=== PATIENT | male | born 1975 | race Caucasian/White ===

== ENCOUNTER 2017-05-12 22:44 | Emergency (ER) | payer MEDICAID ==
[~2017-05-12] VITALS: Ht 167.6 cm; Wt 100.0 kg
[~2017-05-12 22:44] MED LIST: ANTI-FUNGAL12 TOP; BACTRIM DS1 TAB PO; DOXYCYCL HYC100 MG PO; FLEXERIL PO; HYDROXYZ HCL25 MG PO; KURIC2 % EX; LISINOPRIL10 MG PO; LOPRESSOR25 M1 PO; LOPRESSOR50 M1 PO; NO HOME MEDS; SOLU-MEDROL125 MG IM; TRIAMCINOLON0.11 EX; ULTRAM50 M1 PO; ULTRAM50 MG PO; VALTREX1 GM PO
[2017-05-12] MEDS ORDERED: GENTAMICIN15 ML/BTL OS (23:17)
[2017-05-12 23:21] VITALS: BP 147/100
== END 2017-05-12 23:25 | disposition home or self-care (01) | DRG 115 ==
LOC: ED 22:44
PROC: 08C9XZZ Extirpation of Matter from Left Cornea, External Approach (ICD-10-PCS; principal; 2017-05-12)
DX: T15.02XA Foreign body in cornea, left eye, initial encounter (principal); F17.210 Nicotine dependence, cigarettes, uncomplicated; I10 Essential (primary) hypertension; X58.XXXA Exposure to other specified factors, initial encounter

== ENCOUNTER 2017-06-22 21:32 | Observation (INO) | payer MEDICAID ==
[~2017-06-22] VITALS: Ht 167.6 cm; Wt 87.0 kg
[~2017-06-22 21:32] MED LIST changes: +GENTAMICIN15 ML/BTL OS
--- NOTE | 2017-06-22 21:32 | NUR ---
Pt arrived via EMS. C/O chest pain. Recieved ASA 324 mg p.o., NTG 1 sublingual. states that he has been out of his heart meds for several months.
--- NOTE | 2017-06-22 21:45 | NUR ---
Pt does have cardiac history. MD x 4 with stent placement in 2016. Pt states that chest pain was left sided in nature with radiation to back. Denies nausea or vomiting.
--- NOTE | 2017-06-22 22:00 | NUR ---
Pt states that he is starting to feel better. Skin W/P/D, Sinus Rhythm without ectopy,
[2017-06-22 22:18] LABS: HEMATOCRIT 42.9 % (39.0-50.0); HEMOGLOBIN 14.7 g/dl (14.0-18.0); IMMATURE GRANULOCYTES 0.4 % (0.0-1.0); MEAN CELL VOLUME 85.5 fL CALC (80.0-100.0); MEAN CORPUSCULAR HGB 29.3 pG CALC (26.0-32.0); MEAN CORPUSCULAR HGB CONC 34.3 g/L CALC (32.0-36.0); NEUT# 6.94 thou/uL (1.82-7.42); RED BLOOD COUNT 5.02 mill/uL (4.70-6.10); RED CELL DISTRI WIDTH 12.7 % (11.5-15.5)
[2017-06-22 22:26] LABS: ALBUMIN 4.6 g/dL (3.2-5.0); ALKALINE PHOSPHATASE 66 u/l (38-126); ANION GAP 18 (6-22 (CALC)); BILIRUBIN, TOTAL 0.3 mg/dL (0.0-1.4); BUN 15 mg/dL (9-20); BUN/CREATININE RATIO 11 (12-20 (CALC)); CARBON DIOXIDE 24 mmol/l (22-30); CHLORIDE 106 mmol/l (95-108); CREATININE 1.4 mg/dL (0.7-1.3); GFR 55 ML/MIN (>=60 (CALC)); GFR FOR AFR.AMER. > 60 ML/MIN (>=60 (CALC)); POTASSIUM 3.6 mmol/l (3.5-5.1); SGOT/AST 38 u/l (17-59); SGPT/ALT 31 u/l (21-72); SODIUM 144 mmol/l (137-146); TOTAL PROTEIN 7.4 g/dL (6.3-8.2)
--- NOTE | 2017-06-22 22:30 | NUR ---
pt sitting up in bed joking with family members at bedside. Informed that he will probably be spending the evening with us for observation. Agrees to admission.
[2017-06-22 22:32] LABS: PROTHROMBIN TIME 10.9 SECONDS (9.0-12.5)
[2017-06-22 22:38] LABS: MYOGLOBIN 60 ng/mL (0 - 121)
[2017-06-22 23:30] VITALS: BP 145/95
--- NOTE | 2017-06-22 23:35 | NUR ---
Pt transported to room via cot. Tele box on, no obvious distress.
--- NOTE | 2017-06-22 23:40 | NUR ---
PT TO ROOM VIA STRETCHER ACCOMPANIED BY ER STAFF. PT AMBULATED TO BED WITHOUT ASSISTANCE.
--- NOTE | 2017-06-22 23:45 | NUR ---
PT IS ALERT AND ORIENTED X3. PERRLA. RESP ARE EVEN AND UNLABORED. LUNGS ARE CLEAR. TELE IN PLACE. HR REGULAR. PERIPHERAL PULSES PALPABLE. NO EDEMA NOTED. BS ACTIVE. #20 RAC. NO REDNESS OR EDEMA NOTED. PT ORIENTED TO ROOM. WILL CONTINUE TO MONITOR
--- NOTE | 2017-06-23 04:00 | NUR ---
PT RESTING IN BED WITH EYES CLOSED. RESP ARE EVEN AND UNLABORED. NO DISTRESS NOTED. WILL CONTINUE TO MONITOR
[2017-06-23 04:06] VITALS: BP 124/85
--- NOTE | 2017-06-23 07:20 | NUR ---
PT.IS IN BED W/ TV ON AND CALL LIGHT IN HAND. REPORT RECIEVED FROM NIGHT NURSE. HE IS AWAITING BREAKFAST AND STATES THAT HE IS READY TO GO HOME. DENIES ANY PAIN OVER NIGHT OR AT THIS TIME
[2017-06-23 07:45] VITALS: BP 142/98
--- NOTE | 2017-06-23 09:15 | NUR ---
PT.MEDICATED ORDERS PROVIDE. PT.ASKED TO WALK THE BLACKBURN, HE DENIES DIZINESS OR WEAKNESS. PT.IS AMBULATING HALLWAY AT THIS TIME
[2017-06-23 12:56] LABS: HEMATOCRIT 43.8 % (39.0-50.0); HEMOGLOBIN 14.6 g/dl (14.0-18.0); MEAN CELL VOLUME 88.3 fL CALC (80.0-100.0); MEAN CORPUSCULAR HGB 29.4 pG CALC (26.0-32.0); MEAN CORPUSCULAR HGB CONC 33.3 g/L CALC (32.0-36.0); RED BLOOD COUNT 4.96 mill/uL (4.70-6.10)
[2017-06-23 13:07] LABS: ANION GAP 15 (6-22 (CALC)); BUN 15 mg/dL (9-20); BUN/CREATININE RATIO 12 (12-20 (CALC)); CALCULATED LDLCHOLESTEROL 124 mg/dL (62-129 (CALC)); CARBON DIOXIDE 23 mmol/l (22-30); CHLORIDE 109 mmol/l (95-108); CHOLESTEROL HDL RATIO 6.9 (<4.4 (CALC)); CREATININE 1.3 mg/dL (0.7-1.3); GFR 60 ML/MIN (>=60 (CALC)); GFR FOR AFR.AMER. > 60 ML/MIN (>=60 (CALC)); HDL CHOLESTEROL 27 mg/dL (>=40); MAGNESIUM 1.8 mg/dL (1.6-2.3); POTASSIUM 4.1 mmol/l (3.5-5.1); SODIUM 144 mmol/l (137-146); TOTAL CHOLESTEROL 184 mg/dl (0-199); TOTAL TRIGLYCERIDES 166 mg/dl (30-149); VLDL CHOLESTROL 33 mg/dl (5-56 (CALC))
[2017-06-23] MEDS ORDERED: LIPITOR20 MG PO (14:55)
[2017-06-23] MEDS ORDERED: PLAVIX75 MG PO (14:55)
[2017-06-23] MEDS ORDERED: ASPIRIN ADULT L81 M2 PO (14:55)
[2017-06-23] MEDS ORDERED: LISINOPRIL5 MG PO (14:55)
[2017-06-23] MEDS ORDERED: LOPRESSOR25 M1 PO (14:55)
== END 2017-06-23 15:33 | disposition home or self-care (01) | DRG 313 ==
LOC: ED 21:32 → ED-I 22:30 → ED 23:01 → MS2 23:02
PROVIDERS: Emergency Medicine; Nurse Practitioner Family; ADMIT Internal Medicine; ATTEND Internal Medicine
DX: R07.9 Chest pain, unspecified (principal); I25.10 Atherosclerotic heart disease of native coronary artery without angina pectoris; R55 Syncope and collapse; I10 Essential (primary) hypertension; F17.210 Nicotine dependence, cigarettes, uncomplicated; I25.2 Old myocardial infarction; F10.21 Alcohol dependence, in remission; F14.11 Cocaine abuse, in remission; Z91.14 Patient's other noncompliance with medication regimen; Z59.0 Homelessness; Z95.5 Presence of coronary angioplasty implant and graft
CPT/HCPCS: G0378

== ENCOUNTER 2017-06-30 13:06 | Emergency (ER) | payer MEDICAID ==
[~2017-06-30] VITALS: Ht 167.6 cm; Wt 80.0 kg
[~2017-06-30 13:06] MED LIST changes: +ASPIRIN ADULT L81 M2 PO; +LIPITOR20 MG PO; +LISINOPRIL5 MG PO; +PLAVIX75 MG PO
[2017-06-30] MEDS ORDERED: POLYTRIM OS (13:38)
[2017-06-30 13:42] VITALS: BP 168/90
== END 2017-06-30 13:45 | disposition home or self-care (01) | DRG 125 ==
LOC: ED 13:06
DX: H57.8 Other specified disorders of eye and adnexa (principal); H57.12 Ocular pain, left eye

== ENCOUNTER 2017-09-02 22:40 | Emergency (ER) | payer MEDICAID ==
[~2017-09-02] VITALS: Ht 167.6 cm; Wt 101.0 kg
[~2017-09-02 22:40] MED LIST changes: +POLYTRIM OS
[2017-09-02] MEDS ORDERED: NAPROSYN500 MG PO (23:51)
[2017-09-03 00:07] VITALS: BP 135/93
== END 2017-09-03 00:07 | disposition home or self-care (01) | DRG 563 ==
LOC: ED 22:40
DX: S53.401A Unspecified sprain of right elbow, initial encounter (principal); I11.9 Hypertensive heart disease without heart failure; F17.210 Nicotine dependence, cigarettes, uncomplicated; V18.0XXA Pedal cycle driver injured in noncollision transport accident in nontraffic accident, initial encounter; Y93.55 Activity, bike riding; Y92.009 Unspecified place in unspecified non-institutional (private) residence as the place of occurrence of the external cause; Z95.5 Presence of coronary angioplasty implant and graft

== ENCOUNTER 2017-11-10 16:51 | Emergency (ER) | payer MEDICAID ==
[~2017-11-10] VITALS: Ht 167.6 cm; Wt 100.0 kg
[~2017-11-10 16:51] MED LIST changes: +NAPROSYN500 MG PO
[2017-11-10 17:30] LABS: HEMATOCRIT 41.2 % (39.0-50.0); HEMOGLOBIN 14.3 g/dl (14.0-18.0); IMMATURE GRANULOCYTES 0.7 % (0.0-1.0); MEAN CELL VOLUME 85.7 fL CALC (80.0-100.0); MEAN CORPUSCULAR HGB 29.7 pG CALC (26.0-32.0); MEAN CORPUSCULAR HGB CONC 34.7 g/L CALC (32.0-36.0); NEUT# 5.46 thou/uL (1.82-7.42); RED BLOOD COUNT 4.81 mill/uL (4.70-6.10); RED CELL DISTRI WIDTH 12.6 % (11.5-15.5)
[2017-11-10 17:44] LABS: ALBUMIN 3.9 g/dL (3.2-5.0); ALKALINE PHOSPHATASE 64 u/l (38-126); ANION GAP 11 (6-22 (CALC)); BILIRUBIN, TOTAL 0.2 mg/dL (0.0-1.4); BUN 13 mg/dL (9-20); BUN/CREATININE RATIO 11 (12-20 (CALC)); CARBON DIOXIDE 24 mmol/l (22-30); CHLORIDE 110 mmol/l (95-108); CREATININE 1.2 mg/dL (0.7-1.3); GFR > 60 ML/MIN (>=60 (CALC)); GFR FOR AFR.AMER. > 60 ML/MIN (>=60 (CALC)); POTASSIUM 3.6 mmol/l (3.5-5.1); SGOT/AST 26 u/l (17-59); SGPT/ALT 37 u/l (21-72); SODIUM 141 mmol/l (137-146); TOTAL PROTEIN 6.9 g/dL (6.3-8.2)
[2017-11-10] MEDS ORDERED: TRAMADOL HYDROC50 MG PO (18:33)
[2017-11-10] MEDS ORDERED: FLEXERIL PO (18:33)
[2017-11-10] MEDS ORDERED: NAPROSYN500 MG PO (18:33)
[2017-11-10 19:19] VITALS: BP 142/93
== END 2017-11-10 19:19 | disposition home or self-care (01) ==
LOC: ED 16:51
PROVIDERS: Emergency Medicine
DX: S70.11XA Contusion of right thigh, initial encounter (principal); S70.01XA Contusion of right hip, initial encounter; I10 Essential (primary) hypertension; F17.210 Nicotine dependence, cigarettes, uncomplicated; V03.90XA Pedestrian on foot injured in collision with car, pick-up truck or van, unspecified whether traffic or nontraffic accident, initial encounter